=== PATIENT | female | born 2000 | race Two or more races ===

== ENCOUNTER 2019-03-24 14:37 | Observation (INO) | payer OTHER ==
[2019-03-24] MEDS ORDERED: ONDANSETRON 4 MG/2 ML VIAL IVP ONE (14:51)
[2019-03-24] MEDS ORDERED: NS 1,000 ML IV ONE (14:51)
[2019-03-24] MEDS ORDERED: KETOROLAC 30 MG/1 ML SDV IVP ONE (14:51)
[2019-03-24 15:10] LABS: PLATELET COUNT 317 10^3/uL (150-400)
--- NOTE | 2019-03-24 15:11 | EDPHY ---
H & P Stated Complaint: RLQ pain for 4 days. Source: Patient Exam Limitations: No limitations - Personal History Current Tetanus Diphtheria and Acellular Pertussis (TDAP): Yes - Medical/Surgical History Hx Asthma: No Hx Chronic Respiratory Disease: No Hx Diabetes: No Hx Cardiac Disease: No Hx Renal Disease: No Hx Cirrhosis: No Hx Alcoholism: No Hx HIV/AIDS: No Hx Splenectomy or Spleen Trauma: No Other PMH: Cranial surgery - age 3. - Social History Smoking Status: Never smoked Time Seen by Provider: 03/24/19 14:49 HPI/ROS: HPI: This is a 18-year-old female who presents with Chief Complaint: Right lower quadrant pain x4 days Location: Right lower quadrant Quality: Sharp, nonradiating pain Duration: 4 days Signs and Symptoms: no fever, + nausea, no vomiting, no hematemesis, no blood in stool, no abdominal bloating, no diarrhea, no back pain, no urinary symptoms , no vaginal bleeding/discharge, no indigestion, no chest pain, no shortness of breath Timing: Slowly worsening, unable to sleep at night Severity: Moderate Context: Patient presents with 4 day history of right lower quadrant pain that is nonradiating in nature and has waxed and waned. She reports she is unable to sleep at night during the last 2 nights which is extremely abnormal for her. Patient complains of nausea but no fever, no vomiting, no diarrhea, no urinary symptoms, no vaginal bleeding, no vaginal discharge. Patient reports that she is not sexually active. Does not take oral contraception. Exercises every day. Had a bowel movement approximately 1 hr prior to arrival. Last meal was around 10:00 a.m. Traveling to [place] in 2 days. Modifying Factors: [id number] pain medication with transient relief Comment: ROS: A comprehensive 10 system review of systems is otherwise negative aside from elements mentioned in the history of present illness. MEDICAL/SURGICAL/SOCIAL HISTORY: Medical history: Generally healthy. Does not take any regular medications. Surgical history: Cranial surgery - age 3. Social history: Student, nonsmoker, denies drug use. Family history noncontributory. CONSTITUTIONAL: Well-developed, well-nourished young adult white female, extremely well-appearing awake and alert, no obvious distress HEENT: Atraumatic and normocephalic, PERRL, EOMI. Nares patent; no rhinorrhea; no nasal mucosal edema. Tympanic membranes clear. Oropharynx clear, no exudate and moist pink mucosa. Airway patent. No lymphadenopathy. No meningismus. Cardiovascular: Normal S1/S2, tachycardia, regular rhythm, without murmur rub or gallop. PULMONARY/CHEST: Symmetrical and nontender. Clear to auscultation bilaterally. Good air movement. No accessory muscle usage. ABDOMEN: Soft, nondistended, moderate right lower quadrant tenderness, no rebound, no guarding, + localized peritoneal signs, no masses or organomegaly. No CVAT. Mild Rovsing sign. Mild psoas sign. EXTREMITIES: 2/2 pulses, strength 5/5, no deformities, no clubbing, no cyanosis or edema. NEUROLOGICAL: no focal neuro deficits. GCS 15. SKIN: Warm and dry, no erythema. no rash. Good capillary refill. (Cris Adame) Constitutional: Initial Vital Signs Temperature (C) 36.6 C 03/24/19 14:41 Heart Rate 106 H 03/24/19 14:41 Respiratory Rate 18 03/24/19 14:41 Blood Pressure 130/91 H 03/24/19 14:41 O2 Sat (%) 97 03/24/19 14:41 O2 Delivery Mode Room Air Allergies/Adverse Reactions: No Known Allergies Allergy (Unverified 03/24/19 14:44) Home Medications: Medication Instructions Recorded Levonorgestrel-Ethin Estradiol 1 each PO DAILY 03/24/19 [Sronyx 0.10-0.02 mg Tablet] Medical Decision Making ED Course/Re-evaluation: Vital signs reviewed and show mild tachycardia. Afebrile. IV access, laboratory studies, urinalysis, abdominal ultrasound, pelvic ultrasound ordered Given 1 L normal saline, IV Toradol 30 mg, IV Zofran 4 mg 1520: Laboratory studies reviewed. No signs of leukocytosis/anemia/platelet dysfunction/LENA/elevated LFTs/electrolyte imbalance/pancreatitis/. 1530: Urinalysis shows 2+ blood, 3+ LE, 25-50 WBCs, 1+ epithelial cells and trace bacteria; sent for urine culture as suspect contamination 1555: Called by radiologist that pelvic ultrasound shows no signs of ovarian torsion, no ovarian cyst with good blood flows to both ovaries. Abdominal ultrasound shows enlarged appendicitis 6.5 but no secondary findings. This could be early appendicitis. 1615: ED decision to consult Dr. Licea for early acute appendicitis. Patient and mother request to hold off on CT abdomen and pelvis scan without 1st talking to surgery. Patient has no large appendix but no secondary findings, no fever, no white count. 1620: IV Rocephin 1 g and IV Flagyl given for antibiotic prophylaxis. IV Rocephin will cover urine pathogens as well. 1705: End of shift. Signed over to Dr. Metcalf pending Dr. Licea evaluation and recommendation. This patient was seen under the supervision of my secondary supervising physician. I evaluated and cared for this patient with attending. (Cris Adame) Differential Diagnosis: Abdominal pain in a female including but not limited to ovarian cyst, pelvic inflammatory disease, ovarian torsion, urinary tract infection, and appendicitis. (Cris Adame) Other Provider: The patient was evaluated and managed by the Physician [employer] Administrative Assistant. I discussed the patient's presentation and course with the midlevel provider with them and agree with the evaluation. My co-signature indicates that I have reviewed this chart and I agree with the findings and plan of care as documented. I am the secondary supervising physician. Patient was seen and evaluated by Dr. Licea in the emergency department. Plan at this point is to take the patient to the operating room for presumed appendicitis. Patient has also received treatment for possible urinary tract infection and will be discharged from the hospital on Keflex 500 mg p. O. Three times daily for 5 days pending culture results. (Jennifer Metcalf) - Data Points Laboratory Results: Laboratory Results 03/24/19 14:50 03/24/19 14:50 Microbiology Results: MICROBIOLOGY 03/24/19 15:00 Urine,Clean Catch Urine Culture - Preliminary Medications Given: Discontinued Medications Hydrocodone Bitart/Acetaminophen (Bonesteel 5/325) 1 - 2 tab PO Q4 PRN PRN Reason: Pain, Moderate Stop: 04/03/19 18:15 Last Admin: 03/25/19 05:58 Dose: 2 tab Bupivacaine HCl (Sensorcaine 0.5% Vial) Confirm Administered Dose 30 ml .ROUTE .STK-MED ONE Stop: 03/24/19 18:17 Last Admin: 03/24/19 20:05 Dose: 20 ml Cefazolin Sodium (Ancef Syringe) Confirm Administered Dose 1 gm .ROUTE .STK-MED ONE Stop: 03/24/19 18:18 Last Admin: 03/24/19 20:06 Dose: Not Given Fentanyl (Sublimaze) 25 - 100 mcg IVP Q5M PRN PRN Reason: PACU, IMMEDIATE Pain control Stop: 03/24/19 20:00 Last Admin: 03/24/19 20:33 Dose: 25 mcg Heparin Sodium (Porcine) (Heparin Sodium) Confirm Administered Dose 2,000 unit .ROUTE .STK-MED ONE Stop: 03/24/19 18:17 Last Admin: 03/24/19 20:06 Dose: Not Given Hydromorphone HCl (Dilaudid) 0.1 - 0.4 mg IVP Q10M PRN PRN Reason: PACU, PAIN Stop: 03/24/19 20:00 Last Admin: 03/24/19 20:34 Dose: 0.4 mg Sodium Chloride (Ns) 1,000 mls @ 0 mls/hr IV EDNOW ONE; Wide Open PRN Reason: Protocol Stop: 03/24/19 14:52 Last Admin: 03/24/19 15:01 Dose: 1,000 mls Ceftriaxone Sodium/Dextrose (Rocephin 1 Gm (Premix)) 50 mls @ 100 mls/hr IV EDNOW ONE PRN Reason: Protocol Stop: 03/24/19 17:32 Last Admin: 03/24/19 17:10 Dose: 50 mls Metronidazole/Sodium Chloride (Flagyl 500 Mg (Premix)) 100 mls @ 100 mls/hr IV EDNOW ONE PRN Reason: Protocol Stop: 03/24/19 18:02 Last Admin: 03/24/19 17:40 Dose: 100 mls Ketorolac Tromethamine (Toradol) 30 mg IVP EDNOW ONE Stop: 03/24/19 14:52 Last Admin: 03/24/19 15:01 Dose: 30 mg Ketorolac Tromethamine (Toradol) 15 mg IVP Q6H ROS Stop: 03/29/19 14:59 Last Admin: 03/25/19 09:27 Dose: 15 mg Midazolam HCl (Versed) 2 mg IVP ONCALL ONE Stop: 03/24/19 19:01 Last Admin: 03/24/19 19:22 Dose: 2 mg Miscellaneous Medication (Levonorgestrel-Ethin Estradiol [Sronyx 0.10-0.02 Mg Tablet]) 1 each PO DAILY ROS Stop: 09/21/19 08:59 Last Admin: 03/25/19 12:06 Dose: Not Given Ondansetron HCl (Zofran) 4 mg IVP EDNOW ONE Stop: 03/24/19 14:52 Last Admin: 03/24/19 15:01 Dose: 4 mg Departure - Departure Disposition: To OP Cath/Surgery Clinical Impression: Acute lower UTI Acute appendicitis with localized peritonitis Qualifiers: Appendicitis gangrene presence: without gangrene Appendicitis perforation presence: without perforation Appendicitis abscess presence: without abscess Qualified Code(s): K35.30 - Acute appendicitis with localized peritonitis, without perforation or gangrene Condition: Good
[2019-03-24] MEDS ORDERED: BUPIVACAINE 0.5% 30 ML SDV ONE (18:16)
[2019-03-24] MEDS ORDERED: HYDROmorphONE/DILAUDID 1 MG/ML INJ IVP PRN ×2 (18:16→19:00)
[2019-03-24] MEDS ORDERED: HEPARIN 1000 UNIT/1 ML MDV ONE (18:16)
[2019-03-24] MEDS ORDERED: ceFAZolin 1 GM/5 ML SYR ONE (18:17)
[2019-03-24] MEDS ORDERED: D5W 1/2 NS W/ 20 KCl/L 1,000 ML IV SCH (18:30)
--- NOTE | 2019-03-24 18:32 | GHP ---
[f rep st] PREOP HISTORY AND PHYSICAL DATE OF ADMISSION: 03/24/2019 HISTORY OF PRESENT ILLNESS: A 18-year-old female presents with right lower quadrant pain for 3 days. She has had some nausea but no vomiting. No blood in her stools or urine, and no fever. The pain has been well localized in the right lower quadrant. She is quite tender on exam. The pain is worse with walking around or exercising. Her bowels have been otherwise normal and she has no urine sympt oms and no vaginal bleeding or discharge. Her last menstrual period was 3 weeks ago and she is on bi rth control. test was negative. Ultrasound reveals mild to moderately enlarged appendix, which is very tender on ultrasound exam. White blood count is normal. PAST MEDICAL HISTORY: Craniotomy at age 3 for epidural or subdural. She has also had a tonsillectom y. She has had a recent septoplasty and turbinate resections. Medical history reveals no major hosp italizations or medical problems. SOCIAL HISTORY: Reveals she does not smoke. FAMILY HISTORY: Noncontributory. REVIEW OF SYSTEMS: Negative on a full 10-point review, except as related to HPI. PHYSICAL EXAMINATION: GENERAL: An alert, comfortable 18-year-old female in no acute distress. She is afebrile. HEAD AND NECK: Reveals no icterus or adenopathy or oral lesions. Neck is supple and n ontender without adenopathy or thyromegaly. CHEST: Clear and symmetric. CARDIAC: Regular rhythm w ithout murmurs. ABDOMEN: Soft. She has some bowel sounds but decreased. She has tenderness in the right lower quadrant, but no appreciable guarding at this time, although she has had pain medicine a lready. She had no bladder tenderness. PELVIC: Not done. EXTREMITIES: Reveal full range of motio n, full pulses. NEUROLOGIC: Physiologic and symmetric. PSYCH: Reveals her to be alert, oriented, and cooperative. IMPRESSION: Possible appendicitis, although it seems somewhat early despite the 3-day history. She also has some red and white cells in her urine, it is not clear if that was a clean-catch. Risks and options have been fully discussed and she wishes to proceed with laparoscopic appendectomy. /[id number]/MODL
[2019-03-24] MEDS ORDERED: LR 1,000 ML IV ONE (18:43)
[2019-03-24] MEDS ORDERED: NALOXONE HCL 0.4 MG/ML INJ IVP PRN (19:00)
[2019-03-24] MEDS ORDERED: ONDANSETRON 4 MG/2 ML VIAL IVP PRN ×2 (19:00→20:17)
[2019-03-24] MEDS ORDERED: MIDAZOLAM 2 MG/2 ML VIAL IVP ONE (19:00)
[2019-03-24] MEDS ORDERED: ALBUTEROL 3 ML DEYVIAL IH PRN (19:00)
[2019-03-24] MEDS ORDERED: PROMETHAZINE HCL 25 MG/ML INJ IVP PRN (19:00)
[2019-03-24] MEDS ORDERED: DEXAMETHASONE 4 MG/ML VIAL IVP PRN (19:00)
--- NOTE | 2019-03-24 19:00 | PDANEPAE ---
ANE History of Present Illness here for lap fabiola AILYN Past Medical History - Cardiovascular History Hx Hypertension: No Hx Arrhythmias: No Hx Chest Pain: No Hx Coronary Artery / Peripheral Vascular Disease: No Hx CHF / Valvular Disease: No Hx Palpitations: No - Pulmonary History Hx COPD: No Hx Asthma/Reactive Airway Disease: No Hx Recent Upper Respiratory Infection: No Hx Oxygen in Use at Home: No Hx Sleep Apnea: No - Endocrine History Hx Diabetes: No Hypothyroid: No Hyperthyroid: No Obesity: no ANE Review of Systems Review of systems is: negative Review of Systems: - Exercise capacity Exercise capacity: >=4 METS ANE Patient History - Allergies Allergies/Adverse Reactions: No Known Allergies Allergy (Unverified 03/24/19 14:44) - Home Medications Home medications: home medication list seen and reviewed - NPO status NPO Status: no food or drink >8 hours NPO Since - Liquids (Date): 03/24/19 NPO Since - Liquids (Time): 12:00 NPO Since - Solids (Date): 03/24/19 NPO Since - Solids (Time): 10:15 - Smoking Hx Smoking Status: Never smoked ANE Labs/Vital Signs - Labs Result Diagrams: 03/24/19 14:50 03/24/19 14:50 - Vital Signs Vital Signs: reviewed preoperatively; see RN documention for details Blood Pressure: 106/69 Heart Rate: 71 Respiratory Rate: 16 O2 Sat (%): 96 Height: 160.02 cm Weight: 61.235 kg ANE Physical Exam - Airway Neck exam: FROM Mallampati Score: Class 1 Mouth exam: normal dental/mouth exam - Pulmonary Pulmonary: no respiratory distress - Cardiovascular Cardiovascular: regular rate and rhythym - ASA Status ASA Status: I, E ANE Anesthesia Plan Anesthesia Plan: general endotracheal anesthesia
[2019-03-24] MEDS ORDERED: PROPOFOL/EMULSION 500 MG/50 ML BOTTLE IV ONE (19:07)
[2019-03-24] MEDS ORDERED: ROCURONIUM 50 MG/5 ML VIAL ONE ×2 (19:07)
[2019-03-24] MEDS ORDERED: fentaNYL 100 MCG/2 ML INJ ONE ×2 (19:48→20:22)
[2019-03-24] MEDS ORDERED: SUGAMMADEX SODIUM 200 MG/2 ML VIAL IVP ONE (19:58)
--- NOTE | 2019-03-24 20:19 | POSTANESTH ---
Post Anesthetic Evaluation Cardiovascular Status: Normal, Stable Respiratory Status: Normal, Stable Level of Consciousness/Mental Status: Can Participate in Eval Pain Control: Adequate, Prn Tx Ordered Nausea/Vomiting Control: Adequate, Prn Tx Ordered Complications Possibly Related to Anesthesia: None Noted
[2019-03-24] MEDS ORDERED: HYDROmorphONE/DILAUDID 1 MG/ML INJ ONE (20:23)
[2019-03-24] MEDS: fentaNYL 100 MCG/2 ML INJ IVP PRN ×2 (20:26→20:33)
[2019-03-24] MEDS: KETOROLAC 15 MG/1 ML SDV IVP SCH (21:46)
[2019-03-25] MEDS: HYDROCODONE/APAP 5/325 TAB PO PRN ×3 (00:37→05:58)
[2019-03-25] MEDS: KETOROLAC 15 MG/1 ML SDV IVP SCH ×2 (03:34→09:27)
[2019-03-25] MEDS ORDERED: LEVONORGESTREL ETHIN ESTRADIOL PO SCH (09:00)
--- NOTE | 2019-03-25 11:05 | SOAPPROG ---
SOAP Progress Note Assessment/Plan: Assessment/plan: 18 y/o F s/p lap appy POD #1 Also found to have trace bacteria and WBC in urine. Will recheck today. Consider abx if positive. Pain controlled. Tolerating oral intake. Dispo: possibly home today with oral abx pending ua. S: Feeling well overall. Endorses incisional pain. O: Alert Afebrile RRR No increased WOB Abdomen soft, nondistended, attp, incisions cdi 03/25/19 11:03 Objective: Vital Signs Temp Pulse Resp BP Pulse Ox 36.8 C 81 15 100/64 96 03/25/19 08:15 03/25/19 08:15 03/25/19 08:15 03/25/19 08:15 03/25/19 08:15 03/24/19 03/25/19 03/26/19 05:59 05:59 05:59 Intake Total 2630 Output Total 765 Balance 1865 ICD10 Worksheet Patient Problems: Problems Problem Status Onset Acute appendicitis with localized peritonitis Acute
[2019-03-25 12:49] VITALS: BP 99/67
--- NOTE | 2019-03-30 12:33 | POSTOPPROG ---
Post Op Note Date of Operation: 03/24/19 Surgeon: Man Licea Anesthesiologist: SHAILESH Anesthesia: GET(General Endotracheal) Pre-op Diagnosis: ACUTE APPENDICITIS Post-op Diagnosis: SAME Indication: SAME Procedure: LAP APPY Findings: ACUTE APPENDICITIS Inf/Abcess present in the surg proc area at time of surgery?: Yes Depth: Organ Space EBL: Minimal Complications: NONE Specimen(s): APPENDIX
--- NOTE | 2019-03-30 21:07 | GOP ---
[f rep st] OPERATIVE REPORT DATE OF OPERATION: 03/24/2019 SURGEON: Man Licea MD CHAR CONVEYOR TENDER: There was no clinical medical assistant. ANESTHESIOLOGIST: Dr. Jean-Baptiste. PREOPERATIVE DIAGNOSIS: Acute appendicitis. POSTOPERATIVE DIAGNOSIS: Acute appendicitis. PROCEDURE PERFORMED: Laparoscopic appendectomy. FINDINGS: The patient was found to have a mildly inflamed, nonperforated appendicitis. There were n o other major abnormalities in the abdomen. The right tube and ovary appeared to be normal. There w as no evidence of Meckel diverticulum. ESTIMATED BLOOD LOSS: Negligible. DESCRIPTION OF PROCEDURE: The patient was taken to the operating room where she received satisfactor y general endotracheal anesthesia by Dr. Jean-Baptiste. She was placed in supine position, prepped and drap ed in the usual sterile fashion. A periumbilical incision was made. A Veress needle inserted. Pneu moperitoneum was established. A trocar was introduced. Laparoscope introduced. Good visualization was obtained. Two other trocars were placed in the lower abdomen under direct vision. The appendix was elevated up. The mesoappendix was divided with the Harmonic scalpel until the base was skeletoni zed. It was then divided with Endo BRENT stapler at the base and placed in a specimen bag and extracte d through the upper midline port site. Hemostasis was assured. Wound was irrigated. Further explor ation revealed no other major findings. Trocars were removed under direct vision. Pneumoperitoneum was released. Trocar sites were closed with 0 Vicryl for the fascia, 4-0 Monocryl subcuticular stitc h for the skin. All layers were infiltrated with 0.5% Marcaine. DISPOSITION: Taken to recovery room in good condition. COMPLICATIONS: There were no complications. /[id number]/MODL
== END 2019-03-25 15:00 | disposition home or self-care (01) ==
LOC: FOB 21:23
PROVIDERS: ADMIT Surgery; ATTEND Surgery
PROC: 0DTJ4ZZ Resection of Appendix, Percutaneous Endoscopic Approach (ICD-10-PCS; principal; 2019-03-24 18:30)
DX: K35.30 Acute appendicitis with localized peritonitis, without perforation or gangrene (principal); R10.31 Right lower quadrant pain; E86.9 Volume depletion, unspecified
CPT/HCPCS: 44970; 76705; 76856; 96361; 96374; 96375; 96376; 99285; G0378; J0696; J1170; J1885; J2250; J2405; J2704; J3010